=== PATIENT | female | born 1990 | race Asian ===

== ENCOUNTER → 2023-08-20 | Outpatient (CLI) | payer BC ==
[2023-08-20 11:36] LABS: T4 FREE 1.25 ng/dL (0.89-1.76); THYROID STIMULATING HORMONE 0.36 uIU/mL (0.55-4.78)
== END | disposition home or self-care (01) ==
LOC: LAB 10:39
PROVIDERS: ATTEND Internal Medicine Endocrinology, Diabetes & Metabolism
DX: E03.9 Hypothyroidism, unspecified (principal)
CPT/HCPCS: 36415; 80061; 84439; 84443